=== PATIENT | male | born 1985 | race Caucasian/White ===

== ENCOUNTER 2018-07-11 14:00 | Emergency (ER) | payer OTHER ==
[~2018-07-11] VITALS: Ht 167.6 cm; Wt 90.7 kg
[2018-07-11 14:15] VITALS: BP 137/92; Ht 167.6 cm; Wt 90.7 kg
[2018-07-11 15:33] LABS: CALCIUM 9.1 mg/dL (8.5-10.1); CHLORIDE SERUM 100 mmol/L (98-107); CREATININE SERUM 0.9 mg/dL (0.7-1.3); GFR1 > 60 mL/min; GLUCOSE SERUM 83 mg/dL (74-106); POTASSIUM SERUM 4.2 mmol/L (3.5-5.1); SODIUM SERUM 139 mmol/L (136-145)
[2018-07-11 15:37] LABS: ALBUMIN 4.2 g/dL (3.4-5.0); ALKALINE PHOSPHATASE 114 U/L (46-116); ALT/SGPT 27 U/L (16-63); AST/SGOT 20 U/L (15-37); BILIRUBIN TOTAL 0.3 mg/dL (0.20-1.00)
[2018-07-11 15:38] LABS: TOTAL PROTEIN, SERUM 8.6 g/dL (6.4-8.2)
[2018-07-11 15:41] LABS: BASOPHIL % 0.4 % (0-2); PLATELET COUNT 365 x10^3mcL (130-400); RED CELL DISTRIBUTION WIDTH 14.2 % (11.5-14.5)
[2018-07-11 15:50] LABS: AMPHETAMINE QUAL UR NONE DETECTED (See below)
== END 2018-07-11 18:22 | disposition home or self-care (01) ==
LOC: ED 14:00
PROVIDERS: Emergency Medicine
DX: R42 Dizziness and giddiness (principal); R61 Generalized hyperhidrosis
CPT/HCPCS: G0480; J2405; J7030; J8597